=== PATIENT | male | born 1965 | race Caucasian/White ===

== ENCOUNTER 2020-06-14 19:54 | Inpatient (IN) | payer BC ==
[~2020-06-14] VITALS: Ht 172.7 cm; Wt 92.5 kg
[2020-06-14 20:13] VITALS: Ht 172.7 cm; Wt 92.5 kg
[2020-06-14 20:30] LABS: BASOPHIL % 0.4 % (0.2-1.5); PLATELET COUNT 332 x10^3mcL (152-348); RED CELL DISTRIBUTION WIDTH 14.5 % (12.1-16.2)
[2020-06-14 20:44] LABS: CALCIUM 7.6 mg/dL (8.5-10.1); CARBON DIOXIDE 26.7 mmol/L (21-32); CHLORIDE SERUM 104 mmol/L (98-107); CREATININE SERUM 1.3 mg/dL (0.7-1.3); GFR1 > 60 mL/min; GLUCOSE SERUM 251 mg/dL (74-106); POTASSIUM SERUM 3.4 mmol/L (3.5-5.1); SODIUM SERUM 135 mmol/L (136-145)
[2020-06-14 20:49] LABS: ALBUMIN 3.7 g/dL (3.4-5.0); ALKALINE PHOSPHATASE 82 U/L (46-116); ALT/SGPT 67 U/L (16-63); AST/SGOT 29 U/L (15-37); BILIRUBIN TOTAL 0.3 mg/dL (0.20-1.00); TOTAL PROTEIN, SERUM 6.4 g/dL (6.4-8.2)
[2020-06-15] MEDS ORDERED: SEROQUEL50 M1 PO (01:01)
[2020-06-15] MEDS ORDERED: LIPITOR40 MG PO (01:01)
[2020-06-15] MEDS ORDERED: NOR10T PO (01:02)
[2020-06-15] MEDS ORDERED: APAP325 MG (01:02)
[2020-06-15] MEDS ORDERED: TIVORBEX20 MG PO (01:02)
[2020-06-15] MEDS ORDERED: MELATONIN1 MG PO (01:03)
[2020-06-15 02:11] LABS: AMPHETAMINE QUAL UR NONE DETECTED (See below)
[2020-06-15 04:49] VITALS: BP 100/50
[2020-06-15 06:22] LABS: BASOPHIL % 0.3 % (0.2-1.5); PLATELET COUNT 324 x10^3mcL (152-348); RED CELL DISTRIBUTION WIDTH 14.5 % (12.1-16.2)
[2020-06-15 06:29] LABS: CALCIUM 8.1 mg/dL (8.5-10.1); CARBON DIOXIDE 26.7 mmol/L (21-32); CHLORIDE SERUM 108 mmol/L (98-107); CREATININE SERUM 1.1 mg/dL (0.7-1.3); GFR1 > 60 mL/min; GLUCOSE SERUM 113 mg/dL (74-106); MAGNESIUM 2.3 mg/dL (1.8-2.4); POTASSIUM SERUM 3.8 mmol/L (3.5-5.1); SODIUM SERUM 142 mmol/L (136-145)
[2020-06-15 08:12] VITALS: BP 94/62
[2020-06-15 12:21] VITALS: BP 120/75
[2020-06-15 17:34] VITALS: BP 132/79
[2020-06-15 20:43] VITALS: BP 113/63
[2020-06-16 05:34] VITALS: BP 104/63
[2020-06-16 07:25] LABS: BASOPHIL % 0.3 % (0.2-1.5); PLATELET COUNT 318 x10^3mcL (152-348); RED CELL DISTRIBUTION WIDTH 14.5 % (12.1-16.2)
[2020-06-16 07:53] LABS: CARBON DIOXIDE 25.4 mmol/L (21-32); CHLORIDE SERUM 109 mmol/L (98-107); CREATININE SERUM 0.8 mg/dL (0.7-1.3); GFR1 > 60 mL/min; GLUCOSE SERUM 92 mg/dL (74-106); MAGNESIUM 2.1 mg/dL (1.8-2.4); PHOSPHOROUS 2.3 mg/dL (2.5-4.9); POTASSIUM SERUM 4.4 mmol/L (3.5-5.1); SODIUM SERUM 141 mmol/L (136-145)
[2020-06-16 08:07] VITALS: BP 90/50
[2020-06-16 10:13] LABS: CHOLESTEROL/HDL RATIO 4.1
[2020-06-16 12:20] VITALS: BP 127/82
[2020-06-16 16:57] VITALS: BP 125/78
[2020-06-16 20:01] VITALS: BP 117/73
[2020-06-17 05:21] VITALS: BP 109/66
[2020-06-17 07:03] LABS: CARBON DIOXIDE 29.5 mmol/L (21-32); CHLORIDE SERUM 111 mmol/L (98-107); GFR1 > 60 mL/min; GLUCOSE SERUM 87 mg/dL (74-106); MAGNESIUM 2.2 mg/dL (1.8-2.4); PHOSPHOROUS 2.3 mg/dL (2.5-4.9); POTASSIUM SERUM 4.6 mmol/L (3.5-5.1); SODIUM SERUM 144 mmol/L (136-145)
[2020-06-17 07:13] LABS: BASOPHIL % 0.2 % (0.2-1.5); PLATELET COUNT 332 x10^3mcL (152-348); RED CELL DISTRIBUTION WIDTH 14.4 % (12.1-16.2)
[2020-06-17] MEDS ORDERED: SEROQUEL PO (11:31)
[2020-06-17 12:44] VITALS: BP 140/82
[2020-06-17 12:48] VITALS: BP 140/82
== END 2020-06-17 13:57 | disposition home health service (06) | DRG 206 ==
LOC: ED 19:54 → DU 06-15 00:47
PROVIDERS: Student in an Organized Health Care Education/Training Program; ADMIT Family Medicine; ATTEND Family Medicine
DX: M94.0 Chondrocostal junction syndrome [Tietze] (principal); F41.9 Anxiety disorder, unspecified; Z20.822 Contact with and (suspected) exposure to COVID-19; R07.9 Chest pain, unspecified; F31.9 Bipolar disorder, unspecified; I10 Essential (primary) hypertension; E78.5 Hyperlipidemia, unspecified; E83.51 Hypocalcemia; Z90.49 Acquired absence of other specified parts of digestive tract; Z79.899 Other long term (current) drug therapy; Z79.891 Long term (current) use of opiate analgesic; Z79.01 Long term (current) use of anticoagulants; Z79.4 Long term (current) use of insulin
CPT/HCPCS: 82962; 83880; 85378; G0378; J7030; U0003

== ENCOUNTER → 2020-07-19 | Outpatient (CLI) | payer BC ==
[~2020-07-19] MED LIST: APAP325 MG; LIPITOR40 MG PO; MELATONIN1 MG PO; NOR10T PO; SEROQUEL PO; SEROQUEL50 M1 PO; TIVORBEX20 MG PO
== END | disposition home or self-care (01) ==
LOC: NM 06-29 11:00
PROVIDERS: ATTEND Internal Medicine Cardiovascular Disease
DX: R07.9 Chest pain, unspecified (principal)
CPT/HCPCS: A9500; J2785